=== PATIENT | male | born 2000 | race Caucasian/White ===

== ENCOUNTER 2021-02-05 03:34 | Emergency (ER) | payer OTHER ==
[~2021-02-05] VITALS: Ht 185.4 cm; Wt 86.2 kg
[2021-02-05 04:00] VITALS: BP 136/79
[2021-02-05] MEDS ORDERED: PREDNISONE50 MG PO (05:30)
[2021-02-05] MEDS ORDERED: MELOXICAM15 MG PO (05:30)
== END 2021-02-05 05:37 | disposition home or self-care (01) ==
LOC: M.ERS 03:34
DX: S46.911A Strain of unspecified muscle, fascia and tendon at shoulder and upper arm level, right arm, initial encounter (principal); Y04.0XXA Assault by unarmed brawl or fight, initial encounter; Y93.89 Activity, other specified; Y92.89 Other specified places as the place of occurrence of the external cause; Y99.8 Other external cause status